=== PATIENT | male | born 1985 | race Caucasian/White ===

== ENCOUNTER 2022-06-11 22:16 | Emergency (ER) | payer SELFPAY ==
[~2022-06-11] VITALS: Ht 175.3 cm; Wt 99.8 kg
[2022-06-11 22:43] LABS: BASOPHILS % 0.3 % (0.0-1.0); EOSINOPHILS % 0.3 % (0.0-6.0); HEMOGLOBIN 13.6 g/dL (14.0-18.0); LYMPHOCYTES # (AUTO) 1.3 (1.0-3.2); LYMPHOCYTES % 17.8 % (18.0-39.1); MEAN CORPUSCULAR HEMOGLOBIN 31.3 pg (28-32); MEAN CORPUSCULAR HGB CONC 33.2 g/dL (31-35); MEAN CORPUSCULAR VOLUME 94.5 fL (81-99); MONOCYTES # (AUTO) 0.3 (0.2-0.8); MONOCYTES % 4.5 % (4.4-11.3); NEUTROPHILS # (AUTO) 5.4 (2.1-6.9); PLATELET COUNT 211 x10e3/uL (140-360); RED BLOOD COUNT 4.34 x10e6/uL (4.3-5.7); RED CELL DISTRIBUTION WIDTH 11.9 % (11.7-14.4)
[2022-06-11 23:10] LABS: ALBUMIN/GLOBULIN RATIO 1.2 (0.8-2.0); ANION GAP 17.1 mmol/L (8-16); CALCIUM 9.2 mg/dL (8.4-10.2); CREATININE, SERUM 0.74 mg/dL (0.72-1.25); POTASSIUM 4.1 mmol/L (3.5-5.1); SALICYLATE < 5.0 mg/dL (0-30)
[2022-06-11 23:36] LABS: CLARITY,URINE CLEAR (CLEAR); COLOR,URINE YELLOW (YELLOW); KETONES,URINE >=160 (NEGATIVE); LEUKOCYTE ESTERASE ,URINE NEGATIVE (NEGATIVE); NITRITE,URINE NEGATIVE (NEGATIVE); PROTEIN,URINE DIPSTICK TRACE (NEGATIVE)
[2022-06-11 23:37] LABS: AMPHETAMINES SCREEN,URINE NEGATIVE (NEGATIVE); BENZODIAZEPINES SCREEN,URINE POSITIVE (NEGATIVE); PHENCYCLIDINE SCREEN,URINE NEGATIVE (NEGATIVE)
[2022-06-11 23:38] LABS: URINE UROBILINOGEN 0.2 mg/dL (0.2 - 1)
[2022-06-11 23:46] LABS: BACTERIA,URINE MODERATE /HPF; EPITHELIAL CELLS,URINE FEW /LPF; MUCUS,URINE MANY (RARE); RBC,URINE 0-5 /HPF (0-5); WBC,URINE (MAN) 0-5 /HPF (0-5)
[2022-06-12] MEDS ORDERED: HYDROXYZINE PAMOATE 25 MG CAP PO PRN (16:00)
[2022-06-12] MEDS ORDERED: ALPRAZOLAM 1 MG TAB PO ONE (17:45)
[2022-06-12] MEDS ORDERED: ESCITALOPRAM OXALATE 10 MG TAB PO ONE (21:00)
[2022-06-12] MEDS ORDERED: QUETIAPINE FUMARATE 100 MG TAB PO ONE (21:00)
[2022-06-13] MEDS ORDERED: ZOLPIDEM TARTRATE 5 MG TAB PO ONE (00:15)
== END 2022-06-13 09:47 | disposition home or self-care (01) ==
LOC: ER 22:30
DX: R45.851 Suicidal ideations (principal); F32.A Depression, unspecified; N20.0 Calculus of kidney; M54.50 Low back pain, unspecified; F41.9 Anxiety disorder, unspecified; Z20.822 Contact with and (suspected) exposure to COVID-19
CPT/HCPCS: 36415; 74176; 80053; 80307; 80320; 80329 ×2; 81001; 85025; 99285; Q0177; U0002